=== PATIENT | male | born 1985 | race Caucasian/White ===

== ENCOUNTER → 2024-02-02 10:36 | Outpatient (REF) | payer BC, SELFPAY | LOC: RAD 10:36 | PROVIDERS: ATTENDING PHYSICIAN Orthopaedic Surgery; FAMILY PHYSICIAN Family Medicine | DX: S00.259A Superficial foreign body of unspecified eyelid and periocular area, initial encounter (principal) | CPT/HCPCS: 70030 ==

== ENCOUNTER 2024-03-16 06:21 | Day surgery (SDC) | payer BC, SELFPAY ==
[2024-03-16 10:50] VITALS: BMI 29.8
[2024-03-16 10:51] VITALS: BMI 29.8
[2024-03-16] MEDS: CELEBREX 200 MG PO (11:04)
[2024-03-16] MEDS: TYLENOL 1000 MG PO (11:05)
[2024-03-16 11:06] VITALS: BP 140/88
[2024-03-16] MEDS: NORMOSOL-R/PLASMALYTE-A 1000 IV (11:16)
--- NOTE | 2024-03-16 12:16 | PTCARENOTE ---
Patient is allergic to PCN. It causes face swelling and itching. Order changed per surgeon from Ancef to Clindamycin. OR team made aware. Will monitor patient
[2024-03-16 12:46] VITALS: BP 122/82; BP 140/88
[2024-03-16] MEDS: DILAUDID 0.25 MG IV (12:58)
[2024-03-16 13:00] VITALS: BP 122/86
[2024-03-16 13:20] VITALS: BP 122/79
[2024-03-16 13:35] VITALS: BP 144/79
[2024-03-16 13:50] VITALS: BP 116/81
== END 2024-03-16 14:01 | disposition home or self-care (01) ==
LOC: SDS 06:21
PROVIDERS: ATTENDING PHYSICIAN Orthopaedic Surgery
DX: S83.242A Other tear of medial meniscus, current injury, left knee, initial encounter (principal); X58.XXXA Exposure to other specified factors, initial encounter
CPT/HCPCS: 29881